=== PATIENT | male | born 1930 | race Caucasian/White ===

== ENCOUNTER 2016-12-17 07:44 | Day surgery (SDC) | payer MEDICARE, OTHER ==
--- NOTE | 2016-12-12 09:56 | HISTORY AND PHYSICAL E ---
History and Physical NAME: MIGUELITO MENENDEZ : 1930 AGE: 86Y ADMITTED: 12/17/2016 ROOM: CHIEF COMPLAINT: Diverticulosis and polyps. The patient is to have a colonoscopy. HISTORY AND REVIEW OF SYSTEMS: The patient did have polyps in the cecum 2 mL diverticulosis of the sigmoid colon. This was an adenoma polyp. Another colonoscopy was done in 2002. The patient presented at this time regarding colon exam. In 2004, colon resected. Biopsy sigmoid diverticulosis. Cecal polypectomy, inflamed inflammatory pseudopolyps. Another colonoscopy in 2007 showing diverticulosis and external hemorrhoids. No evidence of malignancy in cecum polyp. Another colonoscopy in 2013 showing polyp in the cecum. The patient did have colonoscopy in 2015 and again the patient continued to have diverticulosis and he did have adenoma polyps in the rectum. EXAM: GENERAL: Pleasant, alert, oriented in no acute distress. VITAL SIGNS: Blood pressure 120/80, pulse 80, respirations 18, temperature 98. HEAD, EARS, EYES, NOSE, THROAT: Normal. NECK: Supple. LUNGS: Clear. ABDOMEN: Soft. NEUROLOGIC: Exam negative. CONCLUSION: Colorectal polyps, diverticulosis. PLAN: Colonoscopy. DICTATING PHYSICIAN: DIONNE MADDOX M.D. [id number] PHY#: [id number] ID: [id number] JOB#: [id number] ACCT: [id number] cc:DANNA ADAMS M.D. >
[2016-12-17] MEDS ORDERED: LIDOCAINE 2% JELLY 30 ML TUBE ONE (07:50)
[2016-12-17] MEDS ORDERED: NALOXONE HCL INJ/PF 0.4 MG/1 ML SDV ONE (07:51)
[2016-12-17] MEDS ORDERED: ONDANSETRON HCL INJ/PF 4 MG/2 ML SDV ONE (07:51)
[2016-12-17] MEDS ORDERED: PROMETHAZINE HCL INJ 25 MG/1 ML VIAL ONE (07:51)
[2016-12-17] MEDS ORDERED: GLYCOPYRROLATE INJ 0.4 MG/2 ML VIAL ONE (07:51)
[2016-12-17] MEDS ORDERED: GLUCAGON,HUMAN RECOMB 1 MG INJ ONE (07:52)
[2016-12-17] MEDS ORDERED: FLUMAZENIL INJ 0.5 MG/5 ML VIAL IV ONE (07:52)
[2016-12-17] MEDS ORDERED: EPINEPHRINE INJ 1 MG/10 ML DISP.SYRIN ONE (07:52)
[2016-12-17] MEDS: MIDAZOLAM 2 MG/2 ML INJ ONE ×2 (09:25→09:30)
[2016-12-17] MEDS: FENTANYL CITRATE INJ/PF 100 MCG/2 ML AMPUL ONE ×2 (09:27→09:34)
[2016-12-17 10:51] VITALS: BP 97/45
--- NOTE | 2016-12-17 13:07 | DISCHARGE SUMMARY E ---
Discharge Summary NAME: MIGUELITO MENENDEZ : 1930 AGE: 86Y ADMITTED: 12/17/2016 DISCHARGED: 12/17/2016 PROCEDURE: Colonoscopy and biopsy. HISTORY OF PRESENT ILLNESS: An 86-year-old presented with history of polyps for colon screening. Today's colonoscopy shows diminutive rectosigmoid polyps, sigmoid descending polyps, sigmoid descending colon diverticulosis. DISCHARGE PLAN: Soft low residue diet for 3 days. Hold aspirin and nonsteroidal for 3 days. Awaiting biopsy results. Consider followup colonoscopy in 3 years. DICTATING PHYSICIAN: DIONNE MADDOX M.D. [id number] PHY#: [id number] ID: [id number] JOB#: [id number] ACCT: [id number] cc:DIONNE MADDOX M.D., SWETANG M.D. >
--- NOTE | 2016-12-17 13:08 | OPERATIVE REPORT E ---
Operative Report NAME: MIGUELITO MENENDEZ : 1930 AGE: 86Y DATE OF SURGERY: 12/17/2016 ROOM: PREOPERATIVE DIAGNOSES: 1. Colon screening. 2. History of colonic- polyps. 3. Diverticulosis. POSTOPERATIVE DIAGNOSES: 1. Benign-looking rectosigmoid polyps, 2 to 3 mm in size. 2. Sigmoid diverticulosis, severe. OPERATION: Colonoscopy to the cecum. SURGEON: DIONNE MADDOX M.D. ANESTHESIA: Versed 3, Fentanyl 50. TISSUE REMOVED OR ALTERED: Biopsy, rectal polyps. PROCEDURE: Rectal exam: Enlarged prostate and mild external hemorrhoids. Sigmoid, descending colon: Diverticulosis. Rectosigmoid area shows diminutive, benign-looking, hyperplastic polyps. Biopsy obtained. Descending colon: Moderate amount of stool, diverticulosis. Transverse colon: Normal. Ascending colon: Normal. Cecum: Normal. Scope withdrawn, cecum, ascending, transverse, descending, sigmoid, all the way to the rectum. CONCLUSION: 1. Diverticulosis, sigmoid, descending colon. 2. External hemorrhoids. 3. Rectosigmoid polyps. PLAN: 1. Hold aspirin and nonsteroidals 3 days. 2. Soft, low-residual diet, 3 days. 3. Awaiting biopsy results. 4. Consider followup colonoscopy 3 years. cc:DIONNE MADDOX M.D. >
== END 2016-12-17 10:55 | disposition home or self-care (01) ==
LOC: END 07:44
PROVIDERS: ATTEND Specialist
PROC: 0DBP8ZX Excision of Rectum, Via Natural or Artificial Opening Endoscopic, Diagnostic (ICD-10-PCS; principal; 2016-12-17 09:00)
DX: Z12.11 Encounter for screening for malignant neoplasm of colon (principal); D12.7 Benign neoplasm of rectosigmoid junction; D12.5 Benign neoplasm of sigmoid colon; D12.4 Benign neoplasm of descending colon; K57.30 Diverticulosis of large intestine without perforation or abscess without bleeding; K64.4 Residual hemorrhoidal skin tags; N40.0 Benign prostatic hyperplasia without lower urinary tract symptoms
CPT/HCPCS: 45380; 88305 ×2; J2250; J3010; J1610; J0171; J2310; J2405; J2550; J3490

== ENCOUNTER → 2017-01-01 | Outpatient (CLI) | payer MEDICARE, OTHER | LOC: RAD 15:32 | PROVIDERS: ATTEND Family Medicine | DX: K40.20 Bilateral inguinal hernia, without obstruction or gangrene, not specified as recurrent (principal) | CPT/HCPCS: 76857 ==

== ENCOUNTER → 2019-11-09 | Outpatient (CLI) | payer MEDICARE, OTHER ==
--- NOTE | 2019-11-09 13:13 | RADIOLOGY REPORT (SQ) ---
EXAM DESCRIPTION: CHEST PA/LATERAL COMPLETED DATE/TIME: 11/09/2019 12:51 pm REASON FOR STUDY: COUGH;SOB COMPARISON: Chest films 04/13/2014 EXAM PARAMETERS: NUMBER OF VIEWS: two views TECHNIQUE: Digital Frontal and Lateral radiographic views of the chest acquired. RADIATION DOSE: NA LIMITATIONS: none FINDINGS: LUNGS AND PLEURA: End-stage appearance of obstructive lung disease with hyperlucency in th e upper lobes and crowding of bronchovascular markings in the mid and lower lungs. Question mild fluid overload with Good lines at the bases. No dense consolidation worrisome for pneumonia or gross pleural effusion. No pneumothorax. MEDIASTINUM AND HILAR STRUCTURES: No masses or contour abnormalities. HEART AND VASCULAR STRUCTURES: Heart normal size. No evidence for failure. BONES: No acute findings. HARDWARE: None in the chest. OTHER: No other significant finding. IMPRESSION: Advanced obstructive lung disease There is crowding of bronchovascular markings at the lung bases which is more prominent than on prior chest films. Question superimposed fluid overload TECHNICAL DOCUMENTATION: JOB ID: [id number] [employer]- All Rights Reserved Reading location - IP/workstation name: [email or web address]
== END ==
LOC: OD 12:39
PROVIDERS: ATTEND Specialist
DX: J44.9 Chronic obstructive pulmonary disease, unspecified (principal); R05 Cough; R06.02 Shortness of breath
CPT/HCPCS: 71046